=== PATIENT | female | born 2005 | race Caucasian/White ===

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

== ENCOUNTER 2025-10-14 06:41 | Emergency (ER) | payer SELFPAY ==
[2025-10-14] VITALS (8 sets, daily range): BP systolic 102–122; BP diastolic 71–84; PULSE 57–84; RESP 14–22; TEMP 36.6–36.8; O2SAT 99; BMI 33.5
--- NOTE | 2025-10-14 07:01 | EKG12_ITS ---
Test Reason : SOB Blood Pressure : */* mmHG Vent. Rate : 50 BPM Atrial Rate : 50 BPM P-R Int : 160 ms QRS Dur : 82 ms QT Int : 430 ms P-R-T Axes : 6 85 77 degrees QTcB Int : 392 ms Sinus bradycardia with Premature atrial complexes Otherwise normal ECG Confirmed by Aryan Padilla ([id number]), brands editor LAVERNE VALENCIA ([id number]) on 10/16/2025 8:06:43 AM Referred By: Confirmed By: Aryan Padilla
[2025-10-14] MEDS: 0.9% Normal Saline (1000mL) 1,000 ML 1000 ML IV (07:10)
[2025-10-14] MEDS: Albuterol 2.5 MG/3 ML VIAL.NEB. INHALATION (07:10)
--- NOTE | 2025-10-14 07:11 | EX.ED.VIS.UR ---
HPI HPI - URI History of Present Illness Chief Complaint: Shortness of Breath Informant: patient Narrative Narrative: Patient is a 20-year-old female with no significant reported past medical history presenting with shortness of breath and chest discomfort. Patient started coming down with viral symptoms 2 days ago. Notes she has had bilateral ear pain, cough, congestion and she has had this pressure/tightness in the center of her chest. States she had a fever last night between 99-100 ?F. This morning she woke up feeling very short of breath. She felt like she was wheezing. She denies any history of wheezing or asthma. She reports associated body aches. Notes she works at [employer] has been around a lot of people's is not sure if she has been exposed anyone has been sick. Does have a cough that is been productive of yellow sputum. Came in for further evaluation. Denies any cardiac history. Is noted in triage to have a drop in her heart rate and bradycardia. She does not currently feel lightheaded and that she has had some mild intermittent lightheadedness. Has never been told her heart rate is low. Denies any GI or symptoms. No reported swelling of her legs. Took [id number] cold flu medicine before coming in. ROS ROS ED Constitutional Constitutional ED: Reports chills and fever(s) ENT ENT ED: Reports other Details: Nasal congestion, bilateral ear pain ; Denies sore throat Cardiovascular Cardiovascular: Reports chest pain Respiratory/Chest Respiratory/Chest: Reports cough, dyspnea and sputum Gastrointestinal Gastrointestinal: Denies abdominal pain, diarrhea or vomiting Genitourinary Genitourinary ED: Denies dysuria Musculoskeletal Musculoskeletal: Reports myalgias; Denies arthralgias Integumentary Denies rash Neurologic Neurologic: Denies headache(s) Psychiatric Psychiatric: Denies anxiety PFSH PFSH Medical History no medical history Home Medications ?Medication ?Instructions ?Recorded ?Last Taken ?Type albuterol sulfate 90 mcg/actuation 1 - 2 puff inhalation Q4H PRN PRN 10/14/25 Unknown Rx aerosol inhaler (Ventolin HFA) Wheezing #1 inh Allergy/AdvReac Type Severity Reaction Status Date / Time No Known Allergies Allergy Verified 10/14/25 06:46 Social History Smoking Status: Never smoker EXAM Physical Exam Const Vital Signs: 10/14/25 06:42 10/14/25 06:44 10/14/25 06:46 Temperature 98.2 F 98.2 F Temperature Source Oral Oral Pulse Rate 84 84 Respiratory Rate 22 H 22 H Respiratory Effort Normal Short of Breath Respiratory Depth Deep Respiratory Pattern Tachypnea Blood Pressure 122/71 H 122/71 H Blood Pressure Mean 88 88 Pulse Ox 99 99 Oxygen Delivery Method Room Air Room Air Room Air 10/14/25 06:48 10/14/25 07:14 10/14/25 07:14 Temperature Temperature Source Pulse Rate 57 L 66 Respiratory Rate 14 Respiratory Effort Respiratory Depth Respiratory Pattern Normal Blood Pressure Blood Pressure Mean Pulse Ox 99 Oxygen Delivery Method Room Air 10/14/25 07:41 10/14/25 08:00 10/14/25 08:29 Temperature 97.9 F Temperature Source Pulse Rate 59 L 59 L 82 Respiratory Rate 18 18 16 Respiratory Effort Respiratory Depth Respiratory Pattern Blood Pressure 102/84 H 104/82 H 120/78 Blood Pressure Mean 90 89 92 Pulse Ox 99 99 99 Oxygen Delivery Method Positive well nourished and well developed General Appearance ED: well developed and NAD; Negative for pallor HEENT HEENT Narrative: Mildly dry mucosal membranes. Normal external ears. Normal panic membranes bilaterally. Normal ear canals. Throat: posterior oropharynx normal Eyes EOMs intact bilaterally Neck no lymphadenopathy and supple Resp normal respiratory effort and clear to auscultation bilaterally Cardio no murmurs Rate: bradycardia Rhythm: regular rhythm GI non-tender and non-distended Extremity normal to inspection Neuro oriented x3 Sensorium / Orientation: alert Motor Exam: Negative for general weakness Skin General Skin Exam: Negative for jaundice or pallor Rashes: no rashes MDM MDM MDM Narrative Medical decision making narrative: Patient evaluated for 2 to 3 days of flulike illness. Start feeling short of breath today. Vital signs significant for mild bradycardia which seems to be asymptomatic with normal blood pressure. Differential includes influenza, pneumonia, viral syndrome, cardiogenic cause. She is not reporting pleuritic chest pain and is PE RC negative so low suspicion for pulmonary emboli as a cause of her symptoms. No wheezing however will give albuterol treatments even helps with her chest tightness and feeling of shortness of breath. Workup shows a mild dehydration with a bicarb of 19.6 otherwise largely normal. She is positive for influenza A. No signs of secondary pneumonia on her chest x-ray. Chest x-ray read by myself as well as radiology. Patient feeling improved. Bradycardia improved after IV fluids. Not sure what to make of lab at this time think she can be discharged home. Counseled supportive treatment. She has had symptoms for more than 48 hours so not a candidate for Tamiflu. Did not urinate provide test however is comfortable leaving without that. Will be given a prescription for albuterol inhaler she does feel improved after albuterol treatment in the ER. Counseled on keeping hydrated with fluids, alternate ibuprofen and Tylenol for fever and pain control. Counseled return precautions and typical course of influenza. Lab Data Attestation: I reviewed the patient's lab results. Labs: Laboratory Results - last 24 hr 10/14/25 06:54 WBC 5.9 RBC 4.16 L Hgb 12.4 Hct 36.8 L MCV 88.5 MCH 29.8 MCHC 33.7 RDW Std Deviation 41.1 RDW Coeff of Kori 12.7 Plt Count 258 MPV 10.7 Immature Gran % (Auto) 0.300 Neut % (Auto) 66.9 Lymph % (Auto) 18.1 L Craven % (Auto) 14.0 H Eos % (Auto) 0.2 Baso % (Auto) 0.5 Absolute Neuts (auto) 4.0 Absolute Lymphs (auto) 1.07 Nucleated RBC % 0 Sodium 137 Potassium 3.8 Chloride 104 Carbon Dioxide 19.6 L Anion Gap 13 BUN 11 Creatinine 0.79 Estim Creat Clear Calc 110.82 Est GFR (MDRD) Non-Af 110 BUN/Creatinine Ratio 14.5 Glucose 99 Calcium 8.7 Troponin T High Sens < 6 Radiography Diagnostic Testing: Clinical Impression(s) from Imaging Studies Chest X-Ray 10/14/25 07:22 IMPRESSION: No evidence of acute cardiopulmonary abnormality. Reading Location: [facility] Rhythm Strip Rhythm Strip: sinus bradycardia Rate: 50 Ectopy: PAC(s) EKG Initial EKG: Attestation: I personally reviewed and interpreted this EKG as follows: Interpretation: Sinus Bradycardia Comments: Sinus bradycardia with PACs at a rate of 50 bpm Normal axis Normal intervals Normal ST segments Prior EKG tracings: available for review Prior: Changed (Now bradycardic with PACs) Discharge Plan Triage Chief Complaint: Shortness of Breath ED Provider: Rianna Hu Dx/Rx/DC Orders Clinical Impression: Influenza A, Cough Instructions: ED Influenza (Adult) Prescriptions: New albuterol sulfate [Ventolin HFA] 90 mcg/actuation HFA aerosol inhaler 1 - 2 puff inhalation Q4H PRN PRN (Reason: Wheezing) Qty: 1 0RF Primary Care Provider: Cristy Kay Referrals: Cristy Kay MD [Primary Care Provider, Pediatrics] Activity Restrictions/Additional Instructions: You tested positive for influenza A which is consistent with your symptoms. Treatment is supportive at this time. Push fluids especially fluids with electrolytes and them alternate with water. Alternate [id number] ibuprofen and Tylenol as needed for pain control. You been given an inhaler to use for wheezing, chest tightness and shortness of breath. You did have some intermittent low heart rate in the ER. It could be normal associate with your age but if you start to feel lightheaded or pass out please either return to the ER follow-up with your family doctor for this. Print Language: Georgian Disposition Disposition: Home, Self Care Discharge Date/Time: 10/14/25 08:39
[2025-10-14 07:16] LABS: Hematocrit 36.8 % (37-47); Hemoglobin 12.4 g/dL (12.0-15.0); Immature Granulocytes Count 0.020 X10^3/uL (0.0-0.0); Mean Corp Hgb Conc 33.7 g/dL (32-36); Mean Corpuscular Volume 88.5 fL (81-99); Mean Platelet Vol. 10.7 fl (6.2-12.0); NRBC Flagged by Analyzer 0 % (0-5); Platelet Count 258 K/mm3 (150-450); RBC Distribution Width CV 12.7 % (11.6-14.6); RBC Distribution Width SD 41.1 fl (35.1-43.9); Red Blood Count 4.16 M/mm3 (4.2-5.4); White Blood Count 5.9 K/mm3 (4.4-11.0)
--- NOTE | 2025-10-14 07:22 | RAD_ITS ---
PROCEDURE: CHEST PA AND LATERAL 10/14/2025 REASON FOR EXAM: COUGH, CHEST PAIN TECHNIQUE: Procedure Code: RADCXR Modality: DX Procedure: CHEST PA AND LATERAL COMPARISON: June 02, 2020 FINDINGS: The lungs are adequately aerated bilaterally without pleural effusion, pneumothorax, or focal airspace disease. Cardiomediastinal silhouette is age-appropriate. Osseous structures are normal. RAD/Chest PA and Lateral IMPRESSION: No evidence of acute cardiopulmonary abnormality. Reading Location: [facility]
--- OUTSIDE RECORDS SUMMARY | 2025-10-14 07:28 | XMS RPT_ITS | CCD ---
Author Organization [facility] Care Team Providers Care Clothes Shaker Name Role Phone Paul Meneses Primary Care Provider PAUL MENESES Primary Care Unavailable GIUSEPPE MENDEZ Referring Unavailable GIUSEPPE MENDEZ Attending Unavailable PAUL MENESES Primary Care Unavailable GIUSEPPE MENDEZ Attending Unavailable Bailee Armendariz Attending Unavailable Cristy Kay Referring Unavailable Cristy Kay Primary Care Unavailable Savanna Tavarez Attending Unavailable Cristy Kay Referring Unavailable Cristy Kay Primary Care Unavailable Diony Higgins Attending Unavailable Cristy Kay Referring Unavailable Cristy Kay Primary Care Unavailable Medications Current Medications Medication Drug Class(es) Dates Sig (Normalized) Sig (Original) amoxicillin 875 mg / clavulanate 125 mg oral tablet (4 sources) Penicillin-class Antibacterial Start: 09-19-2023 End: 09-26-2023 take 1 tablet by mouth every twelve hours amoxicillin-clav ulanate potassium (AUGMENTIN) 875-125 mg per tablet Take 1 tablet by mouth every 12 hours for 7 days. 14 tablet 0 09/19/2023 09/26/2023 Active Start: 09-06-2023 End: 09-13-2023 amoxicillin-clavulanate pota ssium (AUGMENTIN) 875-125 mg per tablet Take 1 tablet by mouth two times a day for 7 days. FOR 7 DAYS. 14 tablet 0 09/06/2023 09/13/2023 Active Comment on above: Take 1 tablet by brittney th two times a day for 7 days. FOR 7 DAYS. Take 1 tablet by brittney th every 12 hours for 7 days. Problems Active Problems Problem Classification Problem Date Documented Da te Episodic/Chronic Headache; including migraine (1 source) Headache; including migraine; Translations: [Headache, unspecified] Onset: 02-04-2024 Open wounds of extremities (1 source) Open wound of toe; Translations: [Unspecified open wound of unspecified toe(s) without damage to nail, initial encounter] 09-24-2023 Episodic Other bone disease and musculoskeletal deformities (2 sources) Exostosis; Translations: [Other specified disorders of bone, unspecified site] 12-18-2023 Episodic Other skin disorders (1 source) Infection of toenail; Translations: [Ingrowing nail] 09-06-2023 Episodic Other skin disorders (2 sources) Dystrophia unguium; Translations: [Nail dystrophy] 12-18-2023 Episodic Unclassified (1 source) Cough, unspecified; Translations: [Cough, unspecified] Onset: 11-17-2023 Past or Other Problems Problem Classification Problem Date Documented Da te Episodic/Chronic Gastritis and duodenitis (1 source) Gastritis, unspecified, without bleeding; Translations: [Gastritis, unspecified, without bleeding] Onset: 11-17-2023 Episodic Other upper respiratory infections (2 sources) Acute pharyngitis, unspecified; Translations: [Streptococcal pharyngitis] Onset: 08-24-2023 Episodic Results Test Name Value Interpretation Reference Range Facility Urgent Care Visit Reporton 0 02-04-2024 Urgent Care Visit Report [facility] [address], [address] [place] [address] OFFICE VISIT Date of Service: 02/04/24 MR#: [id number] Acct: [id number] Name: REGLA COATS Rep #: [id number] : 2005 Provider: SHAE Tolliver Age/Sex: 19/F [place] [facility] Status: Signed Intake Vital Signs 08/18/23 12:14 02/04/24 11:43 Height 5 ft 2 in 5 ft 2 in Weight: 195 lb 195 lb BMI 35.6 35.6 BP 114/68 Blood Pressure Location Rt brachial Position Sitting Respiration 16 16 Pulse 69 64 Pulse Source Monitor Monitor Temp 98.4 F 98.0 F Temp Source Temporal Temporal Pulse Oximetry (%) 98 98 Oxygen Delivery Method room air room air Intake Visit Reasons: SORE THROAT Chief Complaint: SORE THROAT CHEST CONGESTION HEADACHE NASAL DRAINAGE Cook Helper Pastry Required: No Accompanied by: Self Is patient in pain?: No Allergies No Known Allergies Allergy (Verified 02/04/24 11:44) Medications NK 02/04/24 [History Confirmed 02/04/24] Nurse's Note: Pt states she has chest congestion sore throat headache nasal drainage since sunday. Pt requested covid/ flu and strep test today. BJ PFSH Social History Smoking Status: Never smoker HPI HPI Chief Complaint: SORE THROAT CHEST CONGESTION HEADACHE NASAL DRAINAGE Details: REGLA COATS, is a 19 F who presents to the office today for initial evaluation in the [facility] for approximately 3 day history of persistent cough, TRONCOSO, myalgias, fatigue, congestion/ runny nose. Patient notes no complaints of chest pain or shortness of breath or dyspnea on exertion. Several close contacts recently dx???d w/ similar URI complaints. Nonsmoker. No [id number] taken to assist. No other associated symptoms and no other alleviating/aggravatin g factors. ROS Const Constitutional: No other (As above) Exam Const General: cooperative, healthy appearing and no acute distress Orientation: alert, awake and oriented x3 HENMT Head: normal to inspection Ears: hearing grossly normal bilaterally, external ears normal, TM's normal bilaterally and EAC's normal Nose: external nose normal, nares normal, septum normal and clear nasal discharge Face and sinus: normal facial exam, sinuses nontender and face symmetric Mouth: oral mucosae normal, lip normal, tongue normal and oropharynx normal Throat: posterior oropharynx normal, tonsils normal, uvula midline and no postnasal drainage Eyes General: appearance normal, both eyes and all related structures Neck Neck: normal visual inspection, full ROM, no lymphadenopathy, no meningeal signs and supple Neck mass: No Thyroid: thyroid normal Lymphatic: no lymphadenopathy noted Chest Chest palpation inspection: normal inspection of the chest Resp Effort Inspection: normal respiratory effort, able to speak in complete sentences and cough Quality of cough: wet (nonproductive in office today) Auscultation: Bilateral: Clear to Auscultation Cardio Palpation: normal PMI Rate: tachycardic Rhythm: regular rhythm Heart Sounds: S1 normal, S2 normal, no gallops, no murmurs and no rubs Pulses: radial pulses present Skin General: no rashes or lesions noted Neuro General: patient alert, patient awake and patient oriented x3 Cognition: normal cognition Speech: speech normal Psych Appearance: grossly normal Mental Status: mental status grossly normal Mood: congruent mood Affect: normal affect Speech and Movement: speech and movement normal Attitude: cooperative Diagnoses Contact with or exposure to other viral diseases Z20.828 URI (upper respiratory infection) J06.9 Assessment and Plan Assessment and Plan (1) Contact with or exposure to other viral diseases: Status: Acute (2) URI (upper respiratory infection): Status: Acute Plan: See POC results. Supportive measures as instructed today. Follow-up with PCP in 5 to 7 days should symptoms not improve, ED sooner should symptoms worsen or any other concerns develop. Pt states acknowledging understanding all the above Results Office Rapid Strep A Office Rapid Strep A Negative Last Edit by Julieth Jensen MA on 02/04/24 11:49 POC FLU A B Office Flu A B Negative FLU A B Last Edit by Julieth Jensen MA on 02/04/24 11:49 POC SARS AG POC SARS AG Negative Last Edit by Julieth Jensen MA on 02/04/24 11:50 Coding Level of Care Code Off vis,est,level 2 Assessment and Plan Assessment and Plan Orders: Orders POC Rapid Strep A Today J02.9 - Acute pharyngitis, unspecified POC FLU A B Today R51.9 - Headache, unspecified POC Rapid SARS Antigen Today 02/04/24 1216 Date Diony Cornell Signature: Date ____ (more content not included)... Normal [facility] No Panel Informationon 12-18 [facility] Internal Medicine Office Vis iton 11-17-2023 Internal Medicine Office Visit [facility] [address] [place] [address] [place] [address] OFFICE VISIT Date of Service: 11/17/23 MR#: [id number] Acct: [id number] Name: REGLA COATS Rep #: [id number] : 2005 Provider: HERSON gibbons Age/Sex: 18/F [place] [facility] [place] Status: Signed Intake Vital Signs 08/18/23 12:14 11/17/23 10:40 Height 5 ft 2 in Weight: 195 lb BMI 35.6 BP 114/68 118/68 Blood Pressure Location Rt brachial Lt brachial Position Sitting Sitting Respiration 16 15 Pulse 69 68 Pulse Source Monitor NIBP Temp 98.4 F 98.3 F Temp Source Temporal Temporal Pulse Oximetry (%) 98 99 Oxygen Delivery Method room air room air Intake Visit Reasons: SORE THROAT, HEADACHE Chief Complaint: vomiting, dry cough, ST/TRONCOSO Cook Helper Pastry Required: No Is patient in pain?: No Allergies No Known Allergies Allergy (Verified 11/17/23 10:41) Medications ondansetron HCl 4 mg tablet 4 mg PO Q8H PRN nausea and vomiting #30 tabs 11/17/23 [Rx Confirmed 11/17/23] Is last menstrual period known: No Post menopausal: No Patient : No Nurse's Note: vomiting, dry cough, ST/TRONCOSO x 5 days PFSH Social History Smoking Status: Never smoker [facility] HPI Chief Complaint: vomiting, dry cough, ST/TRONCOSO Details: REGLA COATS, is a 18 F who presents to the clinic today with sore throat x 5 days reports it is constant, with pain with swallowing. She reports dry cough with occasional productive clear mucus, nasal congestion, headaches, left ear fullness that developed yesterday. She also reports yesterday she developed nausea and vomiting, with 1 episode of emesis this morning, 2 episodes of emesis yesterday. She denies diarrhea, constipation. She has mild abdominal cramping. She states due to a headache she took Excedrin earlier yesterday and Tylenol PM last night. She denies chest pain, chest discomfort, shortness of breath, dizziness or lightheadedness. She denies . ROS Const Constitutional: Positive for other (As noted in HPI) Exam Const General: cooperative and ill appearing Nutritional Appearance: average body habitus Orientation: alert, awake and oriented x3 HENMT Head: normal to inspection and no palpable skull fracture Ears: hearing grossly normal bilaterally, TM normal on the right and TM normal on the left Nose: external nose normal Face and sinus: normal facial exam, sinuses nontender and no sinus tenderness Mouth: oral mucosae normal Teeth and gingiva: dentition normal Throat: tonsils abnormal, abnormal tonsil bilaterally erythema and hypertrophy 2+, posterior oropharynx abnormal and postnasal drainage Other: cobblestoning to posterior pharynx Eyes General: appearance normal, both eyes and all related structures Visual Yang: normal visual yang by confrontation Alignment and Position: alignment normal Periorbital: periorbital findings normal Eyelids: eyelids normal Conjunctivae: conjunctivae normal Sclera: sclerae normal Cornea: corneas normal Pupils: PERRL EOM: EOM intact bilaterally Neck Neck: normal visual inspection, full ROM and lymphadenopathy bilateral anterior cervical soft, mobile and tender Chest Chest palpation inspection: normal inspection of the chest Resp Effort Inspection: normal respiratory effort, able to speak in complete sentences and symmetric chest movement Auscultation: Bilateral: Clear to Auscultation Cardio Rate: regular rate Rhythm: regular rhythm Heart Sounds: S1 normal and S2 normal GI Inspection: normal to inspection Auscultation: normal bowel sounds Palpation: soft Other: mild tenderness on palpation to upper abdomen, epigastrium, and bilateral lower ribs General: No CVA tenderness Skin General: no rashes or lesions noted Neuro General: patient alert, patient awake and patient oriented x3 Cranial Nerves: CN's II-XI intact bilaterally Cognition: normal cognition Speech: speech normal Gait: normal gait Motor: muscle tone normal throughout Psych Appearance: grossly normal Mental Status: mental status grossly normal Mood: congruent mood Affect: normal affect Speech and Movement: speech and movement normal Attitude: cooperative Thought Process: normal Thought Content: normal Judgment: judgment good Results POC SARS AG POC SARS AG Negative Last Edit by Rupa Samson on 11/17/23 10:44 POC FLU A B Office Flu A B Negative FLU A B Last Edit by Rupa Samson on 11/17/23 10:44 Office Rapid Strep A Office Rapid Strep A Negative Last Edit by Rupa Samson on 11/17/23 11:08 Coding Level of Care Code New Pt Off vis,new,level 3 Patient Type New Diagnoses Viral gastritis K29.70 Assessment and Plan Assessment and Plan (1) Viral gastritis: Status: Acute Orders: Orders POC FLU A B Today R05.9 - Cough, u (more content not included)... Normal [facility] CNOVon 09-24-2023 CNOV Office Visit (PODIWS ) REGLA COATS ([id number]) 5 F Date Time Provider Department 09/24/23 11:45 AM GIUSEPPE MENDEZ PODIWS During your visit today, we recorded the following information about you: Thais Bearden LPN 09/24/2023 11:53 AM Signed AMB ROOMING INTAKE FLOWSHEET DATA Pain Pain Level: 4 Pain Location: Toe Description: Sore Duration Amount of Time: 2 Duration Units: Weeks Frequency: Intermittent Intervention/Comfort measure: Reposition, Relaxation, Medication Patient presents with: Left Foot - Established Patient, Follow Up, Pain, Ingrown Toenail Right Foot - Established Patient, Follow Up, Ingrown Toenail BELLO Mullins Matthew 09/24/2023 11:53 AM Signed FOLLOW UP PODIATRIC OFFICE VISIT Chief Complaint: This 18 year old who presents for follow up:total nail removal of b/l hallux Patient presents to clinic for follow-up b/l great toenail removal Patient states that her toe was slightly red last week prompting her to call in for refill on the antibiotic The toes are improving Patient feels well PAIN EVALUATION 09/24/2023 1141 Pain Level: 4 Pain Location: Toe Description: Sore Duration Amount of Time: 2 Duration Units: Weeks Frequency: Intermittent Intervention/Comfort measure: Reposition;Relaxation; Medication No results found for: HBA1C PCP: Paul Meneses MD No past medical history on file. Current Outpatient Medications Medication Sig amoxicillin-clavulanat e potassium (AUGMENTIN) 875-125 mg per tablet Take 1 tablet by mouth every 12 hours for 7 days. No current facility-administered medications for this visit. ALLERGIES No Known Allergies No past surgical history on file. Physical Exam: OBJECTIVE: Constitutional: Pt is a well developed 18 year old female who is alert, oriented, cooperative and in no apparent distress. Eyes: Following during examination. No redness or drainage. Respiratory: RR normal and nonlabored. Even breathing. No evidence of distress. Psychology: Patient is engaged during conversation. Normal affect and mood. Does not appear depressed or anxious. NVSI unchanged from previous visit. Dermatological: B/l hallux nail bed appears to be healing without local signs of infection Musculoskeletal/Orthop aedic: Patient has no pain to palpation of b/l hallux ASSESSMENT: (S91.109A) Open wound of toe, initial encounter (primary encounter diagnosis) PLAN: B/l hallux nail plate appears to be healing without signs of infection Continue with local wound care until all healing has achieved Would make plans for chemical matrixectomy in future once nail has returned Discussed her concern of past infection. I seen no infection at this time. Wonder if the redness she was experiencing was from bandaide. Nevertheless, she is on augmentin which will cover both bacteria present in toe. Can complete the antibiotic refill. F/u prn HERMAN Hightower Matthew 09/24/2023 11:50 AM Signed Your wound appears to be healing Can continue with local wound care until the toe is completely healed Could make arrangements for permanent procedure in future Referring Provider: GIUSEPPE MENDEZ [[id number]] Allergies As of Date: 09/24/2023 (No Known Allergies) Date Reviewed: 09/24/2023 Reviewed by: Thais Bearden LPN - Fully Assessed Reason for Visit: Established Patient [175] Follow Up [171] Pain [78] Ingrown Toenail [111] Established Patient [175] Follow Up [171] Ingrown Toenail [111] Primary Visit Diagnosis:Open wound of toe, initial encounter [S91.109A] Prescriptions as of 09/24/2023 - amoxicillin-clavulanat e potassium (AUGMENTIN) 875-125 mg per tablet Take 1 tablet by mouth every 12 hours for 7 days. Problem List As Of Date: 09/24/2023 (None) Other instructions from your clinician: Your wound appears to be healing Can continue with local wound care until the toe is completely healed Could make arrangements for permanent procedure in future Encounter Status:Closed by GIUSEPPE MENDEZ DPM on 09/24/23 [facility] REGLA COATS ([id number]) 5 F Date Time Provider Department 09/19/23 GIUSEPPE MENDEZ During your visit today, we recorded the following information about you: HOLLI Lincoln Laurie 09/19/2023 10:31 AM Signed 09/06 Total nail avulsion, bilateral hallux Pt completed Augmentin 09/13. Right great toe is still draining yellow/green drainage and still has some red streaking. She states that symptoms have worsened since being off of the antibiotic. Streaking is slightly worse than when she had the procedure. Not extending from toe. Please review and advise. HOLLI Escudero Amelia, LPN 09/19/2023 11:10 AM Signed Giuseppe Mendez MA, Laurie; [facility] 8 minutes ago (10:59 AM) Rx called in. If issues fail to improve, present to urgent care HERMAN Hightower Amelia, LPN 09/19/2023 11:10 AM Signed Patient notified. Thais Bearden LPN Allergies As of Date: 09/19/2023 (No Known Allergies) Date Reviewed: 09/06/2023 Reviewed by: Thais Bearden LPN - Fully Assessed Reason for Visit: Patient Update [1234] Prescriptions as of 09/19/2023 - amoxicillin-clavulanat e potassium (AUGMENTIN) 875-125 mg per tablet Take 1 tablet by mouth every 12 hours for 7 days. Problem List As Of Date: 09/19/2023 (None) Encounter Status:Closed by THAIS BEARDEN on 09/19/23 [facility] [place] 09-10-2023 [facility] Telephone (PODIWS) REGLA COATS ([id number]) 5 F Date Time Provider Department 09/10/23 GIUSEPPE MENDEZ During your visit today, we recorded the following information about you: Giuseppe Mendez 09/10/2023 4:31 PM Signed Please call patient: Wound culture did show staph and strep. You are on appropriate antibiotic. I want you to continue until you finish HERMAN Hightower Amanda, RN 09/10/2023 4:34 PM Signed Called and spoke to patient this morning regarding results. See telephone encounter from 09/09/2023 Allergies As of Date: 09/10/2023 (No Known Allergies) Date Reviewed: 09/06/2023 Reviewed by: Thais Bearden LPN - Fully Assessed Reason for Visit: Results [95] Prescriptions as of 09/10/2023 - amoxicillin-clavulanat e potassium (AUGMENTIN) 875-125 mg per tablet Take 1 tablet by mouth two times a day for 7 days. FOR 7 DAYS. Problem List As Of Date: 09/10/2023 (None) Encounter Status:Closed by EMILEE ORDONEZ on 09/10/[address] [facility] 09-09-2023 [facility] Telephone (PODIWS) REGLA COATS ([id number]) 5 F Date Time Provider Department 09/09/23 GIUSEPPE MENDEZ During your visit today, we recorded the following information about you: Giuseppe Mendez 09/09/2023 12:54 AM Signed Preliminiary cultures shows that augmentin will help on her infection. I want her to continue until complete If she has any issues, please direct her to urgent care as I am out of the office HERMAN Hightower Amelia, LPN 09/10/2023 10:03 AM Signed Spoke to patient mother. Updated patient phone number patient is to call back office to receive results. BELLO Mullins Amanda, RN 09/10/2023 10:11 AM Signed Patient called in requesting culture results. Informed her of below message. She states that she still has some redness and swelling, but that it has improved since she had bilateral bit toenail avulsion on 09/06. States that she still has a few days left of her antibiotics and will continue to take them and soak toes. No further questions at this time. Allergies As of Date: 09/09/2023 (No Known Allergies) Date Reviewed: 09/06/2023 Reviewed by: Thais Bearden LPN - Fully Assessed Reason for Visit: Results [95] Prescriptions as of 09/10/2023 - amoxicillin-clavulanat e potassium (AUGMENTIN) 875-125 mg per tablet Take 1 tablet by mouth two times a day for 7 days. FOR 7 DAYS. Problem List As Of Date: 09/09/2023 (None) Encounter Status:Closed by EMILEE ORDONEZ on 09/10/23 [facility] Bacteria Wnd Culton 09-06-20 Bacteria identified Cx Nom (Wound) ORGANISM ID: 1 Many Staphylococcus aureus ORGANISM ID: 2 Moderate Streptococcus pyogenes (group a streptococcus) ORGANISM ID: 3 Few skin chetna GRAM STAIN: Few Gram positive cocci No Polymorphonuclear Leukocytes ORGANISM ID: 1 (STAPHYLOCOCCUS AUREUS) -- ANTIBIOTIC INTERPRETATION ALICIA STATUS REFERENCE RANGE -- Oxacillin S 0.5 F Susceptible <=2 , Resistant >2 Oxacillin-susceptible staphylococci are susceptible to other penicilllinase-stable penicillins, beta-lactam/beta-lacta pushpa inhibitor combinations, anti-staphylococcal cephems, and carbapenems. Gentamicin S <=0.5 F Susceptible <=4 , Intermediate >4 , Resistant >8 Erythromycin R >=8 F Susceptible <=0.5 , Intermediate >.5 , Resistant >4 Clindamycin S 0.25 F Susceptible <=0.5 , Intermediate >.5 , Resistant >2 Testing for inducible clindamycin resistance was performed. Trimeth sulfameth S <=10 F Susceptible <=40 , Resistant >40 Vancomycin S 1 F Susceptible <=2 , Intermediate >2 , Resistant >8 Rifampin S <=0.5 F Susceptible <=1 , Intermediate >1 , Resistant >2 Rifampin should not be used alone for antimicrobial therapy. Tetracycline S <=1 F Susceptible <=4 , Intermediate >4 , Resistant >8 Doxycycline S <=0.5 F Susceptible <=4 , Intermediate >4 , Resistant >8 ORGANISM ID: 2 (STREPTOCOCCUS PYOGENES (GROUP A STREPTOCOCCUS)) -- ANTIBIOTIC INTERPRETATION ALICIA STATUS REFERENCE RANGE -- Penicillin G S <=0.03 F Susceptible <=0.125 , Nonsusceptible >.125 Ceftriaxone S <=0.12 F Susceptible <=0.5 , Nonsusceptible >.5 Erythromycin S <=0.25 F Susceptible <=0.25 , Intermediate >.25 , Resistant >=1 Clindamycin S <=0.12 F Susceptible <=0.25 , Intermediate >.25 , Resistant >.5 Vancomycin S <=0.50 F Susceptible <=1 , Nonsusceptible >1 Abnormal [facility] Comment on above: Performed By: #### [id number] #### [facility] CLIA [id number] [address] [place] [address] [place] Bacteria identified Cx Nom (Wound) ORGANISM ID: 1 Many Staphylococcus aureus ORGANISM ID: 2 Many Streptococcus pyogenes (group a streptococcus) ORGANISM ID: 3 Rare skin chetna GRAM STAIN: Few Gram positive cocci No Polymorphonuclear Leukocytes ORGANISM ID: 1 (STAPHYLOCOCCUS AUREUS) -- ANTIBIOTIC INTERPRETATION ALICIA STATUS REFERENCE RANGE -- Oxacillin S 0.5 F Susceptible <=2 , Resistant >2 Oxacillin-susceptible staphylococci are susceptible to other penicilllinase-stable penicillins, beta-lactam/beta-lacta pushpa inhibitor combinations, anti-staphylococcal cephems, and carbapenems. Gentamicin S <=0.5 F Susceptible <=4 , Intermediate >4 , Resistant >8 Erythromycin R >=8 F Susceptible <=0.5 , Intermediate >.5 , Resistant >4 Clindamycin S 0.25 F Susceptible <=0.5 , Intermediate >.5 , Resistant >2 Testing for inducible clindamycin resistance was performed. Trimeth sulfameth S <=10 F Susceptible <=40 , Resistant >40 Vancomycin S 1 F Susceptible <=2 , Intermediate >2 , Resistant >8 Rifampin S <=0.5 F Susceptible <=1 , Intermediate >1 , Resistant >2 Rifampin should not be used alone for antimicrobial therapy. Tetracycline S <=1 F Susceptible <=4 , Intermediate >4 , Resistant >8 Doxycycline S <=0.5 F Susceptible <=4 , Intermediate >4 , Resistant >8 ORGANISM ID: 2 (STREPTOCOCCUS PYOGENES (GROUP A STREPTOCOCCUS)) -- ANTIBIOTIC INTERPRETATION ALICIA STATUS REFERENCE RANGE -- Penicillin G S <=0.03 F Susceptible <=0.125 , Nonsusceptible >.125 Ceftriaxone S <=0.12 F Susceptible <=0.5 , Nonsusceptible >.5 Erythromycin S <=0.25 F Susceptible <=0.25 , Intermediate >.25 , Resistant >=1 Clindamycin S <=0.12 F Susceptible <=0.25 , Intermediate >.25 , Resistant >.5 Vancomycin S <=0.50 F Susceptible <=1 , Nonsusceptible >1 Abnormal [facility] Comment on above: Performed By: #### 6 [id number] #### [facility] CLIA [id number] [address] [id number] [place] [facility] CNOVon 09-06-2023 CNOV Office Visit (PODIWS ) REGLA COATS ([id number]) 5 F Date Time Provider Department 09/06/23 10:30 AM GIUSEPPE MENDEZ PODIWS During your visit today, we recorded the following information about you: Thais Bearden LPN 09/06/2023 12:33 PM Signed AMB ROOMING INTAKE FLOWSHEET DATA Risk Screening Do you have concerns about personal safety or safety in the home?: No Pain Pain Level: 10 Pain Location: Toe Description: Throbbing, Sharp, Shooting Duration Amount of Time: 9 Duration Units: Days Frequency: Intermittent Intervention/Comfort measure: Reposition, Relaxation, Medication Patient presents with: Left Great Toe - New, Ingrown Toenail, Pain, Swelling Right Great Toe - New, Ingrown Toenail, Pain, Swelling Patient present to office with bilateral hallux ingrown toenails. Patient states this has been infected for about 9 days. Patient was on antibotics for strep throat and completed medication last Sunday. BELLO Mullins Matthew 09/06/2023 12:33 PM Signed Initial Podiatric Office Visit: Chief Complaint: This 18 year old female who presents with chief complaint:ingrowing toenail of b/l hallux HPI Patient presents to clinic for evaluation of b/l hallux Has ingrowing toenail x 1 week. Has history of ingrowing toenail and can usually cut them out herself She states the nails are red, swollen and draining She did have strep and was on antibiotic. That did help to some degree but she still has drainage. PAIN EVALUATION 09/06/2023 1037 Pain Level: 10 Pain Location: Toe Description: Throbbing;Sharp;Shooti ng Duration Amount of Time: 9 Duration Units: Days Frequency: Intermittent Intervention/Comfort measure: Reposition;Relaxation; Medication No results found for: HBA1C PCP: Paul Meneses MD No past medical history on file. No current outpatient medications on file. No current facility-administered medications for this visit. ALLERGIES No Known Allergies No past surgical history on file. No family history on file. Social History Tobacco Use Smoking status: Passive Smoke Exposure - Never Smoker REVIEW OF SYSTEMS GENERAL: Negative for Malaise, significant weight loss, fever RESPIRATORY: Negative for cough, wheezing and shortness of breath CARDIOVASCULAR: Negative for chest pain, leg swelling and palpitations GI: Negative for abdominal discomfort, blood in stools or black stools and change in bowel habits : Negative for dysuria, frequency and incontinence MUSCULOSKELETAL: Negative for joint pain or swelling, back pain, and muscle pain. SKIN: Negative for lesions, rash, and itching. HEMATOLOGY/LYMPHOLOGY Negative for prolonged bleeding, bruising easily, and swollen nodes. ENDOCRINE: Negative for cold or heat intolerance, polyuria, polydipsia and goiter. NEURO: negative Physical Exam: Constitutional: Pt is a well developed 18 year old female who is alert, oriented and cooperative Eyes: Following during examination. No redness or drainage. Respiratory: RR normal and nonlabored. Even breathing. No evidence of distress or shortness of breath. Psychology: Patient is engaged during conversation. Normal affect and mood. Does not appear depressed or anxious during encounter. Vascular: Dorsalis pedis and posterior tibial pulses palpable as b/l Capillary Fill time < 5 seconds to digits 1-5 b/l Skin temperature warm to warm proximal to distal b/l Hair growth present to digits Neurological: intact light touch/epicritic sensation b/l intact protective sensation no significant neurological deficits Dermatological: B/l hallux medial and lateral nail border is ingrowing with pain, redness, swelling, drainage. The entire proximal medial, proximal lateral and proximal central nail fold is swollen with drainage b/l. There is hypergranular tissue present to medial border of b/l hallux. Webspaces clean and dry 1-4 b/l. Skin appears well hydrated and supple. good color, texture, turgor. No open lesions present. No callosities present. Musculoskeletal/Orthop aedic: Patient has pain to palpation of b/l hallux toenail Radiographs: n/a ASSESSMENT: (L60.0) Ingrowing toenail with infection (primary encounter diagnosis) PLAN: Discussed ingrowing toenail of b/l hallux. Both medial and lateral border is ingrowing and there is drainage to both medial and lateral nail fold. There is some drainage from central nail fold proximally there is redness present to both great toes that is circumferential to the entire hallux. Discussed options not limited to partial nail avulsion vs total nail avulsion. Given the severe infection present, I would plan on placing her on antibiotic combined with total nail avulsion. Patient consents to proceed with total nail avulsion of b/l hallux. Would plan for possible matrixectomy in future provided no inf (more content not included)... Normal [facility] Office Visit Reporton 2022 Office Visit Report [facility] [address] [place] [address] OFFICE VISIT Date of Service: 08/18/23 MR#: [id number] Acct: [id number] Patient: REGLA COATS Rep #: [id number] 9 : 2005 Provider: SHAE Seay Age/Sex: 18/F [place] [facility] [place] Status: Signed Intake Vital Signs 06/02/20 15:43 08/18/23 12:14 Height 5 ft 2 in 5 ft 2 in Weight: 195 lb BMI 35.6 BP 114/68 Blood Pressure Location Rt brachial Position Sitting Respiration 16 Pulse 69 Pulse Source Monitor Temp 98.4 F Temp Source Temporal Pulse Oximetry (%) 98 Oxygen Delivery Method room air Intake Visit Reasons: SORE THROAT Cook Helper Pastry Required: No Is patient in pain?: Yes Allergies No Known Allergies Allergy (Verified 08/18/23 12:12) Medications amoxicillin 500 mg tablet 500 mg PO BID #20 tabs 08/18/23 [Rx Confirmed 08/18/23] Nurse's Note: Started sunday w/ tonsil pain on both sides and a sore throat now it is more localized to R side and will shoot up into her ear, states that it feels like there's a rock. States that it gets worse at night and has not been able to sleep. Has been using cough syrup which did not help. PFSH Social History Smoking Status: Never smoker HPI HPI Details: REGLA COATS, is a 18 F who presents to the office today for sore throat and pain radiating to right ear. Denies fever, chills, body aches. Denies TRONCOSO ROS Const Constitutional: No body ache, chills, excessive sweating, fatigue, frequent falls, headache(s), snoring, weakness, sleep problems or change in appetite Eyes Eyes: No blurry vision, change in vision, eye pain or Light sensitivity ENT ENT: Positive for ear or mastoid pain, difficulty swallowing and sore throat; No abnormal hearing, tinnitus, nasal congestion, headache(s) or neck pain Resp Respiratory: No cough, shortness of breath, snoring or wheezing Cardio Cardiology: No chest pain at rest, chest pain with exertion, excessive sweating, shortness of breath, dyspnea on exertion, lightheadedness, orthopnea or palpitations Gastro GI: Positive for difficulty swallowing; No abdominal pain, change in bowel habits, constipation, cramping, diarrhea, nausea/dyspepsia or vomiting Genitourinary-Female: No burning urination, painful urination, urinary incontinence, urinary frequency, abnormal vaginal bleeding or pelvic pain Musc Musculoskeletal: No abnormal gait, joint pain, back pain, limited range of motion, neck pain or numbness Skin Skin: No dry skin, redness, lesions, itchy eyes, rash or wounds Neuro Neurology: No abnormal gait, abnormal hearing, weakness, frequent falls, headache(s), memory loss or numbness Psych Psychiatric: No anxiety, No change in appetite, No depression, No memory loss and No Thoughts of harming yourself/Others Endo Endocrine: No cold intolerance, excessive sweating, fatigue, flushing, heat intolerance, increased thirst/drinking or increased hunger Aller/Imm Allergy/Immunologic: No itchy eyes, seasonal allergy symptoms, hives or wheezing Biju/Lymp Hematologic/Lymphatic: No easy bleeding, easy bruising, enlarged lymph nodes or other Exam Const General: cooperative, healthy appearing, comfortable and no acute distress Nutritional Appearance: average body habitus Orientation: alert and awake [facility] Head: normal to inspection Ears: hearing grossly normal bilaterally, external ears normal and TM's normal bilaterally Nose: external nose normal and nares normal Mouth: oral mucosae normal, lip normal and tongue normal Throat: posterior oropharynx normal (erythematous) Eyes Pupils: PERRL EOM: EOM intact bilaterally Neck Neck: normal visual inspection, full ROM, no lymphadenopathy, no meningeal signs, trachea midline and supple Resp Effort Inspection: normal respiratory effort and able to speak in complete sentences Auscultation: Bilateral: Clear to Auscultation Skin General: no rashes or lesions noted Results POC Rapid Strep A Office Rapid Strep A Positive Last Edit by Becky Jeter MA on 08/18/23 12:30 Coding Level of Care Code Off vis,new,level 3 Diagnoses Strep pharyngitis J02.0 Assessment and Plan Assessment and Plan (1) Strep pharyngitis: Status: Acute Orders: Orders POC Rapid Strep A Today J02.9 - Acute pharyngitis, unspecified Medications: New amoxicillin 500 mg PO BID 20 tabs 0RF J02.0 - Streptococcal pharyngitis Plan Will treat positive strep with amoxicillin Patient Instructions: Finish all antibiotic rest, drink lots of fluids follow up with lumber planer if no improvement in 2 days 05/10/24 0833 Date Bailee Cornell Signature: Date (if applicable) CC: Normal [facility] Progress Noteon 03-21-2022 Exhaust And Muffler Fitter Authentication Interface Message Text Patient ID: Regla Coats is a 17 y.o. female. Her chief complaint(s) include: 17 YEAR WELL CHILD Assessment 1. Encounter for routine child health examination without abnormal findings 2. Overweight 3. Abnormal weight gain 4. Exercise counseling 5. Encounter for dietary counseling and surveillance 6. Need for vaccination Plan Regla was seen today for 17 year well child. Diagnoses and all orders for this visit: Encounter for routine child health examination without abnormal findings - Hearing Screening - Vision Screening - PHQ9 Assessment With Score - Health Risk Assessment - CRAFFT Overweight - ALT [SGPT] (Lab Collect); Future - Glucose (Lab Collect); Future - Hemoglobin A1c (Lab Collect); Future - TSH with Reflex to T4, Free (Lab Collect); Future - Lipid Panel (Lab Collect); Future Abnormal weight gain - ALT [SGPT] (Lab Collect); Future - Glucose (Lab Collect); Future - Hemoglobin A1c (Lab Collect); Future - TSH with Reflex to T4, Free (Lab Collect); Future - Lipid Panel (Lab Collect); Future Exercise counseling Encounter for dietary counseling and surveillance Need for vaccination - COVID-19 MRNA VACCINE PFIZER 30MCG/0.3ML IM SUSP Discussed diet and exercise. Return in about 1 year (around 03/21/2023) for well check. Subjective She is accompanied by her sibling(s). Independent history obtained from sibling(s) (and patient). 17 YEAR WELL CHILD Complications after delivery: parental limits and consequences for unacceptable behavior Home: Regla has an adult to turn to for help and is permitted and able to make independent decisions. Regla does not eat meals with family, has no home risk identified and does not pay the bills. Education: Regla is in 11th grade and is doing well, is meeting expectations, is getting along with peers and earns A's & B's. Eating: Regla eats regular meals including fruits and vegetables, limits fast food, drinks non-sweetened liquids and has a calcium source. Regla does not eat breakfast. Activities & Sports: Regla has a job ([employer]) and performs at least 1 hour of physical activity daily. Regla engages in screen time more than 2 hours daily, does not play team sports, does not participate in music programs and does not have drivers license. Drugs: Regla does not use tobacco, does not use drugs, does not use alcohol and does not vape. Safety: Regla has a violence free home, has peer relationships free from violence and uses seat belt. Regla does not use helmet. Sex: The patient has never had a sexual partner. The patient has never had sex. The patient's gender identity is cisgender. Suicidality: Regla has ways to cope with stress and displays self-confidence. Regla has no problems with sleep, has no depression, has no anxiety, does not have mood swings, has no suicidal ideation and has no homicidal ideation. PHQ-9 Score: 0 Menstruation (Menarche: around 12 years of age, LMP: 03/10/22) Menstruation: regular periods, minimal cramping and bloating Output Urine and Stool Pattern: Urine and Stool Pattern: Normal stool pattern, no constipation, normal urine pattern, no nocturnal enuresis. Stool Consistency: soft Sleep Sleeping Difficulty: no difficulty sleeping Hours of sleep at a time: 10 Teen Anticipatory Guidance The following anticipatory guidance was reviewed during the visit: Nutrition: limit junk food/fast food and soft drinks. Safety: home safety and use safety helmet/gear with activities. Social: avoid or limit screen time and parental limits and consequences for unacceptable behavior. Health: age appropriate dental care, age appropriate sleep habits, elevated noise and hearing, avoid situations where drugs and alcohol are present, how to resist peer pressure to smoke, drink, use drugs, practice abstinence- the safest way to prevent and STDs, learn to manage time and activities, be responsible for attendance/ homework/ course selection and limit sun exposure/use sunscreen. Screenings Previous Vaccine Reactions: No. Life events information was reviewed-no referral needed (social determinant questionnaire completed: no concerns at this time) Tuberculosis Concerns: Negative Tuberculosis Screen Concerns: no exposure to Tb or person with positive ppd Hearing Vision Concerns: The caregiver has no concerns about the patient's hearing. The caregiver has no concerns about the patient's vision. Hyperlipidemia Concerns: Negative Hyperlipidemia Screen Concerns: no parent or grandparent with DE angina peripheral or cerebrovascular disease <55 years and no parent with cholesterol >240mg/dl Primary Care Review of Systems Objective Vital Signs 03/21/22 1300 BP: 104/64 Temp: 36.6 C (97.9 F) TempSrc: Temporal Weight: (!) 94.2 kg Height: 161.5 cm Body mass index is 36.12 kg/m . Physical Exam Constitutional: She appears well. She is active. No (more content not included)... Normal [facility] Progress Noteon 02-28-2022 Exhaust And Muffler Fitter Authentication Interface Message Text Patient ID: Regla Coats is a 17 y.o. female. Her chief complaint(s) include: Pharyngitis (Nasal congestion, cough, headache ) Assessment 1. Acute bacterial sinusitis 2. Need for vaccination Plan Regla was seen today for pharyngitis. Diagnoses and all orders for this visit: Acute bacterial sinusitis - cefdinir (OMNICEF) 300 MG capsule; Take 1 Capsule (300 mg) by mouth 2 times daily for 10 days Need for vaccination - Meningococcal ACWY (MENACTRA) - Meningococcal B (BEXSERO) - HPV (Gardasil 9) Return if symptoms worsen or fail to improve. Will start antibiotic for sinus infection. Recommended taking on full stomach and eating yogurt or taking probiotic for up to 1 month after atbx use. Advised to give medication 3 days to start to see improvement. Discussed supportive care with motrin/tylenol, nasal saline/washes, humidifier, and vicks to chest. Deferred covid booster today d/t acute illness and unable to r/o covid infection, to receive at [facility]. Subjective HPI Comments: Hx of tonsil stones- was on amoxicillin recently d/t thought it was strep, saw improvement when on amox, finished amox 2 Sundays ago. Started feeling sick again last Sunday- first sx sore throat. She is accompanied by her mother. Independent history obtained from mother. Pharyngitis The duration has been 1 week. The course is unchanging. Aggravated by drinking, talking and eating. Symptoms are relieved by acetaminophen. The patient's symptoms have included headaches (tylenol helps, currently with TRONCOSO, temporal, 6/10 pain, no vision changes, pounding), congestion, rhinorrhea, cough (x1 week, + mucus), abdominal pain (occasional) and diarrhea (started while on amox, persisting, 4-5x/day, watery, no blood , no mucus). The patient's symptoms have included no fatigue, no fever, no ear pain and no vomiting. The patient has been exposed to no sick contacts(No exposure to covid or flu) . Primary Care Review of Systems Objective Vital Signs 02/28/22 1052 Temp: 36.9 C (98.5 F) TempSrc: Temporal Weight: (!) 96 kg There is no height or weight on file to calculate BMI. Physical Exam Constitutional: She appears well. She is active. No distress. HENT: Head: Atraumatic. Sinus tenderness (frontal and maxillary) present. Ears: Right Ear: Tympanic membrane and external ear normal. Left Ear: Tympanic membrane and external ear normal. Nose: No nasal discharge. Mouth/Throat: Mucous membranes are moist. No pharynx erythema. Tonsils are 2+ on the right. Tonsils are 2+ on the left. No tonsillar exudate. Eyes: Conjunctivae are normal. Cardiovascular: Normal rate and regular rhythm. Heart murmur not heard. Pulmonary/Chest: Breath sounds normal. There is normal air entry. Lymphadenopathy: No right anterior and posterior cervical adenopathy present. No left anterior and posterior cervical adenopathy present. Neurological: She is alert. Normal [facility] Encounters Encounter Date Encounter Type Care Provider Facility Start: 02-04-2024 End: 02-04-2024 ambulatory Diony KAUFMAN [place] [place]: 12-18-2023 Telephone encounter Giuseppe Carcamo nery Work Phone: Podiatry Comment on above: Results Start: 12-18-2023 End: 12-18-2023 Subsequent hospital visit by physician Xr [facility] Zandra Sullivan Work Phone: Radiology Comment on above: Onychodystrophy [L60 .3] Start: 12-18-2023 End: 12-18-2023 Patient encounter procedure Giuseppe Mendez Work Phone: Podiatry Comment on above: Onychodystrophy (Rosa Elena raimundo Dx); Exostosis Start: 11-17-2023 End: 11-17-2023 ambulatory Savanna Tavarez [place] [place] Start: 09-24-2023 End: 09-24-2023 ambulatory PAUL MENESES Facility:[facility] Start: 09-24-2023 End: 09-24-2023 Patient encounter procedure Giuseppe Hoffmanpat Work Phone: Podiatry Comment on above: Open wound of toe, i nitial encounter (Primary Dx) Start: 09-19-2023 Telephone encounter Giuseppe Carcamo nery Work Phone: [place] Provider Adult Comment on above: Orders Patient Update Start: 09-10-2023 Telephone encounter Giuseppe Carcamo nery Work Phone: Podiatry Comment on above: Results Start: 09-06-2023 End: 09-06-2023 ambulatory PAUL MENESES Facility:[facility] Start: 09-06-2023 End: 09-06-2023 Patient encounter procedure Giuseppe Sky Work Phone: Podiatry Comment on above: Ingrowing toenail wi th infection (Primary Dx) Start: 08-18-2023 End: 08-18-2023 ambulatory Bailee KAUFMAN Facility:[facility] Procedures Date Procedure Procedure Detail Performing Clinician Start: 12-18-2023 Radex toe minimum 2 views Giuseppe Sky Work Phone: Start: 09-06-2023 Cul bact xcpt urine blood/stool aerobic isol Giuseppe Hoffmanpat Work Phone: Plan of Treatment Date Care Activity Detail Author Start: 07-24-2027 Urine microalbumin profile DTaP,Tdap,Td Vaccine (7 - Td or Tdap) [facility] Start: 10-22-2023 Depression Assessment Depression Assessment [facility] Start: 06-22-2023 Covid-19 Vaccine ( season) Covid-19 Vaccine ( season) [facility] Start: 06-22-2023 Influenza vaccination Influenza Vaccine (#1) [facility] Start: 2023 Chlamydia Screening (18-24) Chlamydia Screening (18-24) [facility] Start: 2023 GC (Gonorrhea) Screening (18-24) GC (Gonorrhea) Screening (18-24) [facility] Start: 2023 Hepatitis C Screening Hepatitis C Screening [facility] Start: 2023 Hepatitis C screening Hepatitis C Screening [facility] Start: 2023 HIV Screening HIV Screening [facility] Start: 2023 HIV screening HIV Screening [facility] Start: 2023 Screening for Chlamydia trachomatis Chlamydia Screening (18-24) [facility] Start: 10-22-2022 Depression Assessment Depression Assessment [facility] Start: 03-28-2022 HPV Vaccine (2 - 3-dose series) HPV Vaccine (2 - 3-dose series) [facility] Start: 03-28-2022 Meningococcal B Vaccine: Consider Based On Risk (2 of 2 - Risk Bexsero 2-dose series) Meningococcal B Vaccine: Consider Based On Risk (2 of 2 - Risk Bexsero 2-dose series) [facility] Start: 2019 Peds To Adult Transition Annual Assessment Peds To Adult Transition Annual Assessment [facility] Start: 2017 Peds To Adult Transition Initial Discussion Peds To Adult Transition Initial Discussion [facility] Bacteria identified in Wound by Culture ABSCESS AND WOUND CULTURE WITH GRAM STAIN Microbiology Routine Ingrowing toenail with infection 09/06/2023 11:57 AM EST [facility] Work Phone: [facility] c Immunizations Immunization Date Immunization Notes Care Provider Tiffani ashishalina 09-30-2009 influenza virus vacc ine, unspecified formulation Giuseppe Mendez Work Phone: [facility] Payers Date Payer Category Payer Self-pay 2022 Medicaid [place] [employer] [employer] [id number] 2022-Present [phone] [address] [place] [address] Medicaid [id number] 2022 Medicaid [id number] Unknown [id number] Unknown [id number] Unknown [id number] Social History Date Type Detail Facility Start: 01-18-2016 Tobacco smoking stat [facility] Never smoked tobacco [facility] Work Phone: History of tobacco use Passive smoker [facility] Work Phone: Start: 01-18-2016 Alcohol intake Not Asked Josie aviles [facility] Start: 2005 Sex Assigned At Not on file [facility] Start: 09-24-2023 End: 12-18-2023 Gender identity Not on file [facility] Start: 09-24-2023 End: 12-18-2023 Alcohol intake Lifetime non-drinker (finding) [facility] Start: 09-24-2023 End: 12-18-2023 History of Social function [facility] National Score (1-100), lower number is lower risk 57 [facility] Clinical Notes 09-06-2023 to 12-18-2023 Telephone Encounter - Thais Bearden LPN - 12/18/2023 2:32 PM ESTTelephone Encounter - Giuseppe Mendez - 12/18/2023 12:39 PM Gloria Hammer RT(R) - 12/18/2023 9:00 AM ESTPatient Instructions Note Date & Type Note Facility 12-18-2023 Miscellaneous Notes Patient notified of results and provider's instructions. Patient verbalizes understanding. Thais Bearden LPN Please call patient to inform her that she has no bone spur. She will need to keep the nails cut short or consider removal of toenail Giuseppe Mendez DPM documented in this encounter [facility] 12-18-2023 History of Presen t illness Narrative Radiology Service Progress Note PATIENT NAME: Regla Coats DATE OF SERVICE: December 18, 2023 TIME: 8:51 AM PATIENT IDENTITY VERIFICATION COMPLETED USING TWO (2) IDENTIFIERS: Name and Date of confirmed by patient verbally. FALL SCREENING: Has the patient had 2 falls in the last year or 1 fall with injury or currently using an Ambulatory Assistive Device (Walker, Cane, Wheelchair, Crutches, etc.)? No PATIENT GENDER DATA: Female. status: : No status: NO. PATIENT RELEVANT IMPLANT DATA REVIEWED: Yes PATIENT PRESENTS WITH AN IMPLANTABLE OR ATTACHED RELOCATION ASSOCIATE: No RADIOLOGY DEPARTMENT: General X-ray: Exam(s) Completed: Lower Extremity X-Ray(s): Toes, Bilateral Great toe PERIPHERAL IV DATA: Not applicable SIGNED BY: RT Sharon(R) December 18, 2023 8:51 AM documented in this encounter [facility] 12-18-2023 History of Presen t illness Narrative FOLLOW UP PODIATRIC OFFICE VISIT Chief Complaint: This 18 year old who presents for follow up:ingrowing toenail of b/l great toe Patient presents to clinic for follow-up evaluation of b/l hallux Had total nail avulsion performed in August 2023 for infection. Toenail is starting to return and she is experiencing some pain with any pressure from shoes . She denies any redness or drainage. PAIN EVALUATION No data found in the last 1 encounters. No results found for: HBA1C PCP: Paul Meneses MD No past medical history on file. No current outpatient medications on file. No current facility-administered medications for this visit. ALLERGIES No Known Allergies No past surgical history on file. Physical Exam: OBJECTIVE: Constitutional: Pt is a well developed 18 year old female who is alert, oriented, cooperative and in no apparent distress. Eyes: Following during examination. No redness or drainage. Respiratory: RR normal and nonlabored. Even breathing. No evidence of distress. Psychology: Patient is engaged during conversation. Normal affect and mood. Does not appear depressed or anxious. NVSI unchanged from previous visit. Dermatological: B/l hallux nail does appear to be growing back. No signs of infection There is hypertrophy of distal nail fold of b/l hallux Musculoskeletal/Orthopaedic: Patient has no pain to palpation of b/l feet ASSESSMENT: (L60.3) Onychodystrophy (primary encounter diagnosis) (M89.8X9) Exostosis PLAN: Discussed b/l hallux nail deformity. I think the largest issue is her hypertrophy of distal nail fold resulting in pressure from nail plate. Options include keeping the nail cut short, possibly looking to see if there is underlying exostosis vs total nail matrixectomy. Patient not sure about total nail matrixectomy at this time. She has elected to keep the nail cut short and will check xray looking for exostosis. No infection currently. Will monitor and keep nail cut short. Giuseppe Mendez DPM Patient presents with: Left Great Toe - Established Patient, Follow Up, Ingrown Toenail Right Great Toe - Established Patient, Follow Up, Ingrown Toenail Patient presents for bilateral big toenail check. Patient had bilateral hallux total nail avulsion done 09/06/23 and now the nails seem to be ingrowing again. Tenderness to medial borders of bilateral nails. No redness or swelling. documented in this encounter [facility] 09-24-2023 Note HNO ID: [id number] Author: Giuseppe Mendez Service: ? Author Type: Physician Type: Progress Notes Filed: 09/24/2023 11:53 AM Note Text: FOLLOW UP PODIATRIC OFFICE VISIT Chief Complaint: This 18 year old who presents for follow up:total nail removal of b/l hallux Patient presents to clinic for follow-up b/l great toenail removal Patient states that her toe was slightly red last week prompting her to call in for refill on the antibiotic The toes are improving Patient feels well PAIN EVALUATION 09/24/2023 1141 Pain Level: 4 Pain Location: Toe Description: Sore Duration Amount of Time: 2 Duration Units: Weeks Frequency: Intermittent Intervention/Comfort measure: Reposition;Relaxation;Medicatio n No results found for: HBA1C PCP: Paul Meneses MD No past medical history on file. Current Outpatient Medications Medication Sig amoxicillin-clavulanate potassium (AUGMENTIN) 875-125 mg per tablet Take 1 tablet by mouth every 12 hours for 7 days. No current facility-administered medications for this visit. ALLERGIES No Known Allergies No past surgical history on file. Physical Exam: OBJECTIVE: Constitutional: Pt is a well developed 18 year old female who is alert, oriented, cooperative and in no apparent distress. Eyes: Following during examination. No redness or drainage. Respiratory: RR normal and nonlabored. Even breathing. No evidence of distress. Psychology: Patient is engaged during conversation. Normal affect and mood. Does not appear depressed or anxious. NVSI unchanged from previous visit. Dermatological: B/l hallux nail bed appears to be healing without local signs of infection Musculoskeletal/Orthopaedic: Patient has no pain to palpation of b/l hallux ASSESSMENT: (S91.109A) Open wound of toe, initial encounter (primary encounter diagnosis) PLAN: B/l hallux nail plate appears to be healing without signs of infection Continue with local wound care until all healing has achieved Would make plans for chemical matrixectomy in future once nail has returned Discussed her concern of past infection. I seen no infection at this time. Wonder if the redness she was experiencing was from bandaide. Nevertheless, she is on augmentin which will cover both bacteria present in toe. Can complete the antibiotic refill. F/u prn Giuseppe Mendez DPM [facility] 09-24-2023 Note HNO ID: [id number] Author: Thais Bearden LPN Service: ? Author Type: LICENSED NURSE Type: Progress Notes Filed: 09/24/2023 11:53 AM Note Text: AMB ROOMING INTAKE FLOWSHEET DATA Pain Pain Level: 4 Pain Location: Toe Description: Sore Duration Amount of Time: 2 Duration Units: Weeks Frequency: Intermittent Intervention/Comfort measure: Reposition, Relaxation, Medication Patient presents with: Left Foot - Established Patient, Follow Up, Pain, Ingrown Toenail Right Foot - Established Patient, Follow Up, Ingrown Toenail Thais Bearden LPN [facility] 09-24-2023 Instructions Giuseppe Mendez - 09/24/2023 11:50 AM EST Your wound appears to be healing Can continue with local wound care until the toe is completely healed Could make arrangements for permanent procedure in future documented in this encounter [facility] 09-24-2023 History of Presen t illness Narrative FOLLOW UP PODIATRIC OFFICE VISIT Chief Complaint: This 18 year old who presents for follow up:total nail removal of b/l hallux Patient presents to clinic for follow-up b/l great toenail removal Patient states that her toe was slightly red last week prompting her to call in for refill on the antibiotic The toes are improving Patient feels well PAIN EVALUATION 09/24/2023 1141 Pain Level: 4 Pain Location: Toe Description: Sore Duration Amount of Time: 2 Duration Units: Weeks Frequency: Intermittent Intervention/Comfort measure: Reposition;Relaxation;Medicatio n No results found for: HBA1C PCP: Paul Meneses MD No past medical history on file. Current Outpatient Medications Medication Sig amoxicillin-clavulanate potassium (AUGMENTIN) 875-125 mg per tablet Take 1 tablet by mouth every 12 hours for 7 days. No current facility-administered medications for this visit. ALLERGIES No Known Allergies No past surgical history on file. Physical Exam: OBJECTIVE: Constitutional: Pt is a well developed 18 year old female who is alert, oriented, cooperative and in no apparent distress. Eyes: Following during examination. No redness or drainage. Respiratory: RR normal and nonlabored. Even breathing. No evidence of distress. Psychology: Patient is engaged during conversation. Normal affect and mood. Does not appear depressed or anxious. NVSI unchanged from previous visit. Dermatological: B/l hallux nail bed appears to be healing without local signs of infection Musculoskeletal/Orthopaedic: Patient has no pain to palpation of b/l hallux ASSESSMENT: (S91.109A) Open wound of toe, initial encounter (primary encounter diagnosis) PLAN: B/l hallux nail plate appears to be healing without signs of infection Continue with local wound care until all healing has achieved Would make plans for chemical matrixectomy in future once nail has returned Discussed her concern of past infection. I seen no infection at this time. Wonder if the redness she was experiencing was from bandaide. Nevertheless, she is on augmentin which will cover both bacteria present in toe. Can complete the antibiotic refill. F/u prn Giuseppe Mendez DPM AMB ROOMING INTAKE FLOWSHEET DATA Pain Pain Level: 4 Pain Location: Toe Description: Sore Duration Amount of Time: 2 Duration Units: Weeks Frequency: Intermittent Intervention/Comfort measure: Reposition, Relaxation, Medication Patient presents with: Left Foot - Established Patient, Follow Up, Pain, Ingrown Toenail Right Foot - Established Patient, Follow Up, Ingrown Toenail Thais Bearden LPN documented in this encounter [facility] 09-19-2023 Miscellaneous Notes Patient notified. Thais Bearden LPN Images from the original note were not included. Giuseppe Mendez MA, Laurie; [facility] 8 minutes ago (10:59 AM) Rx called in. If issues fail to improve, present to urgent care Giuseppe Mendez DPM 09/06 Total nail avulsion, bilateral hallux Pt completed Augmentin 09/13. Right great toe is still draining yellow/green drainage and still has some red streaking. She states that symptoms have worsened since being off of the antibiotic. Streaking is slightly worse than when she had the procedure. Not extending from toe. Please review and advise. Mahi Lincoln MA documented in this encounter [facility] 09-19-2023 Miscellaneous Notes I prescribed another week of augmentin. Have her continue with soaking and topical antibiotic. If condition fails to improve, present to urgent care Giuseppe Mendez DPM documented in this encounter [facility] 09-10-2023 Miscellaneous Notes Called and spoke to patient this morning regarding results. See telephone encounter from 09/09/2023 Please call patient: Wound culture did show staph and strep. You are on appropriate antibiotic. I want you to continue until you finish Giuseppe Mendez DPM documented in this encounter [facility] 09-06-2023 Note HNO ID: [id number] Author: Thais Bearden LPN Service: ? Author Type: LICENSED NURSE Type: Progress Notes Filed: 09/06/2023 12:33 PM Note Text: UNIVERSAL PROTOCOL / SAFETY CHECKLIST Procedure to be Performed: Total nail avulsion, bilateral hallux Sign In: A Moment of CARE was completed. Personnel directly involved with the procedure wore the appropriate PPE (Personal Protective Equipment). No special equipment needed. Patient/Surrogate Stated/Verified: PATIENT VERIFIED(optional for EMERGENT procedures): Patient name, Date of , Relevant allergies, and The intended procedure Time Out Communication: Intended patient and procedure match the source documents. Consent documented and matches the intended procedure. Relevant labs, photos, and/or imaging studies have been reviewed. Correct side/site marked and visible. Medications required for procedure verified. No fire risk assessment and interventions applicable. No implant(s) inserted. Sign Out: SIGN OUT (optional for EMERGENT procedures): All specimen containers correctly labeled. All instruments, equipment, possible retained foreign bodies accounted for. Post-procedure follow-up management communicated and Plan of Care Visit completed when applicable. Thais Bearden LPN [facility] 09-06-2023 Note HNO ID: [id number] Author: Giuseppe Mendez Service: ? Author Type: Physician Type: Progress Notes Filed: 09/06/2023 12:33 PM Note Text: Initial Podiatric Office Visit: Chief Complaint: This 18 year old female who presents with chief complaint:ingrowing toenail of b/l hallux HPI Patient presents to clinic for evaluation of b/l hallux Has ingrowing toenail x 1 week. Has history of ingrowing toenail and can usually cut them out herself She states the nails are red, swollen and draining She did have strep and was on antibiotic. That did help to some degree but she still has drainage. PAIN EVALUATION 09/06/2023 1037 Pain Level: 10 Pain Location: Toe Description: Throbbing;Sharp;Shooting Duration Amount of Time: 9 Duration Units: Days Frequency: Intermittent Intervention/Comfort measure: Reposition;Relaxation;Medicatio n No results found for: HBA1C PCP: Paul Meneses MD No past medical history on file. No current outpatient medications on file. No current facility-administered medications for this visit. ALLERGIES No Known Allergies No past surgical history on file. No family history on file. Social History Tobacco Use Smoking status: Passive Smoke Exposure - Never Smoker REVIEW OF SYSTEMS GENERAL: Negative for Malaise, significant weight loss, fever RESPIRATORY: Negative for cough, wheezing and shortness of breath CARDIOVASCULAR: Negative for chest pain, leg swelling and palpitations GI: Negative for abdominal discomfort, blood in stools or black stools and change in bowel habits : Negative for dysuria, frequency and incontinence MUSCULOSKELETAL: Negative for joint pain or swelling, back pain, and muscle pain. SKIN: Negative for lesions, rash, and itching. HEMATOLOGY/LYMPHOLOGY Negative for prolonged bleeding, bruising easily, and swollen nodes. ENDOCRINE: Negative for cold or heat intolerance, polyuria, polydipsia and goiter. NEURO: negative Physical Exam: Constitutional: Pt is a well developed 18 year old female who is alert, oriented and cooperative Eyes: Following during examination. No redness or drainage. Respiratory: RR normal and nonlabored. Even breathing. No evidence of distress or shortness of breath. Psychology: Patient is engaged during conversation. Normal affect and mood. Does not appear depressed or anxious during encounter. Vascular: Dorsalis pedis and posterior tibial pulses palpable as b/l Capillary Fill time < 5 seconds to digits 1-5 b/l Skin temperature warm to warm proximal to distal b/l Hair growth present to digits Neurological: intact light touch/epicritic sensation b/l intact protective sensation no significant neurological deficits Dermatological: B/l hallux medial and lateral nail border is ingrowing with pain, redness, swelling, drainage. The entire proximal medial, proximal lateral and proximal central nail fold is swollen with drainage b/l. There is hypergranular tissue present to medial border of b/l hallux. Webspaces clean and dry 1-4 b/l. Skin appears well hydrated and supple. good color, texture, turgor. No open lesions present. No callosities present. Musculoskeletal/Orthopaedic: Patient has pain to palpation of b/l hallux toenail Radiographs: n/a ASSESSMENT: (L60.0) Ingrowing toenail with infection (primary encounter diagnosis) PLAN: Discussed ingrowing toenail of b/l hallux. Both medial and lateral border is ingrowing and there is drainage to both medial and lateral nail fold. There is some drainage from central nail fold proximally there is redness present to both great toes that is circumferential to the entire hallux. Discussed options not limited to partial nail avulsion vs total nail avulsion. Given the severe infection present, I would plan on placing her on antibiotic combined with total nail avulsion. Patient consents to proceed with total nail avulsion of b/l hallux. Would plan for possible matrixectomy in future provided no infection present. Discussed risks of toenail procedure not limited to infection, pain, swelling, bleeding, painful scarring, recurrence, need for revised procedure. Patient consented to proceed. Patient was properly identified by name and procedure. The rightr hallux was then injected with 3 cc of 1% lidocaine plain. The toe was then prepped and draped in the usual aseptic technique. A digital tournicot was applied to the toe. The entire nail was then freed and removed. Careful inspection was performed to assure no remaining spicule present. Avulsion was performed. Wound culture performed. All nonviable tissue was debrided. Silver nitrate was used for hemostasis. Sterile dressing was then applied consisting of amerigel, guaze, james and coban. Tournicot was removed and hyperemic response was noted. Patient tolerated well. Patient will f/u in 2 weeks. Discussed risks of toenail procedure not limited to infection, pain, swelli (more content not included)... [facility] 09-06-2023 Note HNO ID: [id number] Author: Thais Bearden LPN Service: ? Author Type: LICENSED NURSE Type: Progress Notes Filed: 09/06/2023 12:33 PM Note Text: AMB ROOMING INTAKE FLOWSHEET DATA Risk Screening Do you have concerns about personal safety or safety in the home?: No Pain Pain Level: 10 Pain Location: Toe Description: Throbbing, Sharp, Shooting Duration Amount of Time: 9 Duration Units: Days Frequency: Intermittent Intervention/Comfort measure: Reposition, Relaxation, Medication Patient presents with: Left Great Toe - New, Ingrown Toenail, Pain, Swelling Right Great Toe - New, Ingrown Toenail, Pain, Swelling Patient present to office with bilateral hallux ingrown toenails. Patient states this has been infected for about 9 days. Patient was on antibotics for strep throat and completed medication last Sunday. Thais Bearden LPN [facility] 09-06-2023 History of Presen t illness Narrative UNIVERSAL PROTOCOL / SAFETY CHECKLIST Procedure to be Performed: Total nail avulsion, bilateral hallux Sign In: A Moment of CARE was completed. Personnel directly involved with the procedure wore the appropriate PPE (Personal Protective Equipment). No special equipment needed. Patient/Surrogate Stated/Verified: PATIENT VERIFIED(optional for EMERGENT procedures): Patient name, Date of , Relevant allergies, and The intended procedure Time Out Communication: Intended patient and procedure match the source documents. Consent documented and matches the intended procedure. Relevant labs, photos, and/or imaging studies have been reviewed. Correct side/site marked and visible. Medications required for procedure verified. No fire risk assessment and interventions applicable. No implant(s) inserted. Sign Out: SIGN OUT (optional for EMERGENT procedures): All specimen containers correctly labeled. All instruments, equipment, possible retained foreign bodies accounted for. Post-procedure follow-up management communicated and Plan of Care Visit completed when applicable. Thais Bearden LPN Initial Podiatric Office Visit: Chief Complaint: This 18 year old female who presents with chief complaint:ingrowing toenail of b/l hallux HPI Patient presents to clinic for evaluation of b/l hallux Has ingrowing toenail x 1 week. Has history of ingrowing toenail and can usually cut them out herself She states the nails are red, swollen and draining She did have strep and was on antibiotic. That did help to some degree but she still has drainage. PAIN EVALUATION 09/06/2023 1037 Pain Level: 10 Pain Location: Toe Description: Throbbing;Sharp;Shooting Duration Amount of Time: 9 Duration Units: Days Frequency: Intermittent Intervention/Comfort measure: Reposition;Relaxation;Medicatio n No results found for: HBA1C PCP: Paul Meneses MD No past medical history on file. No current outpatient medications on file. No current facility-administered medications for this visit. ALLERGIES No Known Allergies No past surgical history on file. No family history on file. Social History Tobacco Use Smoking status: Passive Smoke Exposure - Never Smoker REVIEW OF SYSTEMS GENERAL: Negative for Malaise, significant weight loss, fever RESPIRATORY: Negative for cough, wheezing and shortness of breath CARDIOVASCULAR: Negative for chest pain, leg swelling and palpitations GI: Negative for abdominal discomfort, blood in stools or black stools and change in bowel habits : Negative for dysuria, frequency and incontinence MUSCULOSKELETAL: Negative for joint pain or swelling, back pain, and muscle pain. SKIN: Negative for lesions, rash, and itching. HEMATOLOGY/LYMPHOLOGY Negative for prolonged bleeding, bruising easily, and swollen nodes. ENDOCRINE: Negative for cold or heat intolerance, polyuria, polydipsia and goiter. NEURO: negative Physical Exam: Constitutional: Pt is a well developed 18 year old female who is alert, oriented and cooperative Eyes: Following during examination. No redness or drainage. Respiratory: RR normal and nonlabored. Even breathing. No evidence of distress or shortness of breath. Psychology: Patient is engaged during conversation. Normal affect and mood. Does not appear depressed or anxious during encounter. Vascular: Dorsalis pedis and posterior tibial pulses palpable as b/l Capillary Fill time < 5 seconds to digits 1-5 b/l Skin temperature warm to warm proximal to distal b/l Hair growth present to digits Neurological: intact light touch/epicritic sensation b/l intact protective sensation no significant neurological deficits Dermatological: B/l hallux medial and lateral nail border is ingrowing with pain, redness, swelling, drainage. The entire proximal medial, proximal lateral and proximal central nail fold is swollen with drainage b/l. There is hypergranular tissue present to medial border of b/l hallux. Webspaces clean and dry 1-4 b/l. Skin appears well hydrated and supple. good color, texture, turgor. No open lesions present. No callosities present. Musculoskeletal/Orthopaedic: Patient has pain to palpation of b/l hallux toenail Radiographs: n/a ASSESSMENT: (L60.0) Ingrowing toenail with infection (primary encounter diagnosis) PLAN: Discussed ingrowing toenail of b/l hallux. Both medial and lateral border is ingrowing and there is drainage to both medial and lateral nail fold. There is some drainage from central nail fold proximally there is redness present to both great toes that is circumferential to the entire hallux. Discussed options not limited to partial nail avulsion vs total nail avulsion. Given the severe infection present, I would plan on placing her on antibiotic combined with total nail avulsion. Patient consents to proceed with total nail avulsion of b/l hallux. Would plan for possible matrixectomy in future provided no infection present. Discussed risks of toenail procedure not limited to infection, pain, swelling, bleeding, painful scarring, recurrence, need for revised procedure. Patient consented to proceed. Patient was properly identified by name and procedure. The rightr hallux was then injected with 3 cc of 1% lidocaine plain. The toe was then prepped and draped in the usual aseptic technique. A digital tournicot was applied to the toe. The entire nail was then freed and removed. Careful inspection was performed to assure no remaining spicule present. Avulsion was performed. Wound culture performed. All nonviable tissue was debrided. Silver nitrate was used for hemostasis. Sterile dressing was then applied consisting of amerigel, guaze, james and coban. Tournicot was removed and hyperemic response was noted. Patient tolerated well. Patient will f/u in 2 weeks. Discussed risks of toenail procedure not limited to infection, pain, swelling, bleeding, painful scarring, recurrence, need for revised procedure. Patient consented to proceed. Patient was properly identified by name and procedure. The left hallux was then injected with 3 cc of 1% lidocaine plain. The toe was then prepped and draped in the usual aseptic technique. A digital tournicot was applied to the toe. The entire nail was then freed and removed. Careful inspection was performed to assure no remaining spicule present. Avulsion was performed. Wound culture performed. All nonviable tissue was debrided. Silver nitrate was used for hemostasis. Sterile dressing was then applied consisting of amerigel, guaze, james and coban. Tournicot was removed and hyperemic response was noted. Patient tolerated well. Patient will f/u in 2 weeks. Giuseppe Mendez DPM Podiatry [facility] [address] [facility] [address] Dept: [phone] Dept AMB ROOMING INTAKE FLOWSHEET DATA Risk Screening Do you have concerns about personal safety or safety in the home?: No Pain Pain Level: 10 Pain Location: Toe Description: Throbbing, Sharp, Shooting Duration Amount of Time: 9 Duration Units: Days Frequency: Intermittent Intervention/Comfort measure: Reposition, Relaxation, Medication Patient presents with: Left Great Toe - New, Ingrown Toenail, Pain, Swelling Right Great Toe - New, Ingrown Toenail, Pain, Swelling Patient present to office with bilateral hallux ingrown toenails. Patient states this has been infected for about 9 days. Patient was on antibotics for strep throat and completed medication last Sunday. Thais Bearden LPN documented in this encounter [facility] 09-06-2023 Instructions Thais Bearden LPN - 09/06/2023 11:17 AM EST Post-Op Nail Instructions Minimize activity until the anesthesia wears off (about 2-8 hours). Increase activity to tolerance Remove bandage tomorrow Soak affected toe/foot in epsom salts for 15-20 minutes twice daily After soaking, apply antibiotic ointment (OTC Neosporin) to affected toe and re bandage OTC Ibuprofen if having pain, provided you have no allergies or intolerance to NSAIDS Mild drainage, redness, and blood is expected, but if you expeirence severe pain, increase in drainage, swelling, or red streaking please contact our office immediately Feel free to contact office as well if you have any questions/concerns [phone], ask for Podiatry Nurse documented in this encounter [facility] Evaluation note Diagnosis Ingrowing toenail with infection- Primary Ingrowing nail [facility] Open wound of toe, initial encounter- Primary [facility] Diagnosis Onychodystrophy- Primary Other specified disease of nail Exostosis Exostosis of unspecified site [facility] Onychodystrophy Other specified disease of nail Exostosis Exostosis of unspecified site [facility] Diagnostic Procedure Only (Routine) - Closed Specialty Diagnoses / Procedures Referred By Bonifacio ro Referred To Contact XR IMAGING Diagnoses Onychodystrophy Exostosis Procedures XR TOE AP/LAT/OBL LEFT RADEX TOE MINIMUM 2 VIEWS Giuseppe Mendez[address] [place] [address] [place] [address] Referral ID Status Reason Start Date Expiration Date V isits Requested Visits Authorized [id number] Closed Auto-Generate d Referral 12/18/2023 01/16/2025 1 1 * Diagnostic Procedure Only (Routine) - Closed Specialty Diagnoses / Procedures Referred By Contac t Referred To Contact XR IMAGING Diagnoses Onychodystrophy Exostosis Procedures XR TOE AP/LAT/OBL RIGHT RADEX TOE MINIMUM 2 VIEWS Giuseppe [address] [place] [address] [place] [address] Referral ID Status Reason Start Date Expiration Date V isits Requested Visits Authorized [id number] Closed Auto-Generate d Referral 12/18/2023 01/16/2025 1 1 [facility] for referral (narrative)* Diagnostic Procedure Only (Routine) - Closed Specialty Diagnoses / Procedures Referred By Contac t Referred To Contact XR IMAGING Diagnoses Onychodystrophy Exostosis Procedures XR TOE AP/LAT/OBL LEFT RADEX TOE MINIMUM 2 VIEWS Giuseppe Mendez [address] [place] [address] [place] [address] Referral ID Status Reason Start Date Expiration Date V isits Requested Visits Authorized [id number] Closed Auto-Generate d Referral 12/18/2023 01/16/2025 1 1 * Diagnostic Procedure Only (Routine) - Closed Specialty Diagnoses / Procedures Referred By Contac t Referred To Contact XR IMAGING Diagnoses Onychodystrophy Exostosis Procedures XR TOE AP/LAT/OBL RIGHT RADEX TOE MINIMUM 2 VIEWS Giuseppe Mendez [address] [place] [address] [place] [address] Referral ID Status Reason Start Date Expiration Date V isits Requested Visits Authorized [id number] Closed Auto-Generate d Referral 12/18/2023 01/16/2025 1 1 [place] [facility] for visit Narrative* Diagnostic Procedure Only (Routine) - Closed Specialty Diagnoses / Procedures Referred By Bonifacio ro Referred To Contact XR IMAGING Diagnoses Onychodystrophy Exostosis Procedures XR TOE AP/LAT/OBL LEFT RADEX TOE MINIMUM 2 VIEWS Giuseppe Mendez [address] [place] [address] [place] [id number] Referral ID Status Reason Start Date Expiration Date V isits Requested Visits Authorized [id number] Closed Auto-Generate d Referral 12/18/2023 01/16/2025 1 1 [facility] Summary Purpose Family History No Family History Records FoundNo Family History Records FoundNo Family History Records Found Advance Directives No Advanced Directives Records FoundNo Advanced Directives Records FoundNo Advanced Directives Records Found Additional Source Comments INFORMATION SOURCE (unrecogn ized section and content) DATE CREATED AUTHOR 03/21/[address] [facility] DATE CREATED AUTHOR AUTHOR'S ORGANIZ ATION 09/26/2023 [facility] DATE CREATED AUTHOR AUTHOR'S ORGANIZ ATION 05/13/2024 [facility] Source Comments (unrecognize d section and content) In the event this informatio n is protected by the Federal Confidentiality of Alcohol and Drug Abuse Patient Records regulations: The Federal rules restrict any use of the information to criminally investigate or prosecute any alcohol or drug abuse patient.[facility] the event this information is protected by the Federal Confidentiality of Alcohol and Drug Abuse Patient Records regulations: The Federal rules restrict any use of the information to criminally investigate or prosecute any alcohol or drug abuse patient.[facility] the event this information is protected by the Federal Confidentiality of Alcohol and Drug Abuse Patient Records regulations: The Federal rules restrict any use of the information to criminally investigate or prosecute any alcohol or drug abuse patient.[facility] the event this information is protected by the Federal Confidentiality of Alcohol and Drug Abuse Patient Records regulations: The Federal rules restrict any use of the information to criminally investigate or prosecute any alcohol or drug abuse patient.[facility] the event this information is protected by the Federal Confidentiality of Alcohol and Drug Abuse Patient Records regulations: The Federal rules restrict any use of the information to criminally investigate or prosecute any alcohol or drug abuse patient.[facility] the event this information is protected by the Federal Confidentiality of Alcohol and Drug Abuse Patient Records regulations: The Federal rules restrict any use of the information to criminally investigate or prosecute any alcohol or drug abuse patient.[facility] Center[facility] the event this information is protected by the Federal Confidentiality of Alcohol and Drug Abuse Patient Records regulations: The Federal rules restrict any use of the information to criminally investigate or prosecute any alcohol or drug abuse patient.[facility] Center[facility] the event this information is protected by the Federal Confidentiality of Alcohol and Drug Abuse Patient Records regulations: The Federal rules restrict any use of the information to criminally investigate or prosecute any alcohol or drug abuse patient.[facility] Reason for Visit (unrecogniz ed section and content) Reason Comments New Ingrown Toenail Pain Swelling Reason Comments Results Reason Comments Orders Reason Comments Patient Update Reason Comments Established Patient Follow Up Pain Ingrown Toenail Reason Comments Established Patient Follow Up Ingrown Toenail Care Teams (unrecognized sec tion and content) Clothes Shaker Relationship Specialty Start Date End Date Paul Meneses PCP - General 01/02/06 Clothes Shaker Relationship Specialty Start Date End Date Paul Meneses PCP - General 01/02/06 Clothes Shaker Relationship Specialty Start Date End Date Paul Meneses PCP - General 01/02/06 Clothes Shaker Relationship Specialty Start Date End Date Paul Meneses PCP - General 01/02/06 Clothes Shaker Relationship Specialty Start Date End Date Paul Meneses PCP - General 01/02/06 Clothes Shaker Relationship Specialty Start Date End Date Paul Meneses PCP - General 01/02/06 Clothes Shaker Relationship Specialty Start Date End Date Paul Meneses [facility] 01/02/06 FOR RECORDS PERTAINING TO PATIENTS WHO ARE OR HAVE BEEN ENROLLED IN A CHEMICAL DEPENDENCY/SUBSTANCEABUSE PROGRAM, SOME INFORMATION MAY BE OMITTED. This clinical summary was aggregated from multiple sources. Caution should be exercised in using it in the provision of clinical care. This summary normalizes information from multiple sources, and as a consequence, information in this document may materially change the coding, format and clinical context of patient data. In addition, data may be omitted in some cases. CLINICAL DECISIONS SHOULD BE BASED ON THE PRIMARY CLINICAL RECORDS. [facility] provides no warranty or guarantee of the accuracy or completeness of information in this document.
[2025-10-14 07:30] LABS: Troponin T High Sensitivity < 6 ng/L (<=14)
[2025-10-14 07:43] LABS: Anion Gap 13 (7-18); BUN 11 mg/dL (4-19); BUN/Creat Ratio 14.5 RATIO (10-20); Calcium,Total 8.7 mg/dL (7.6-11.0); Carbon Dioxide 19.6 mmol/L (20.0-29.0); Chloride 104 mmol/L (96-106); Estimated Creatinine Clearance 110.82 ml/min (50-250); Glucose 99 mg/dL (70-99); Potassium 3.8 mmol/L (3.5-5.1)
== END 2025-10-14 08:39 | disposition home or self-care (01) ==
PROVIDERS: Emergency Provider Emergency Medicine; PCP Pediatrics; Visit Provider Emergency Medicine
DX: J10.1 Influenza due to other identified influenza virus with other respiratory manifestations (principal); E86.0 Dehydration; R05.9 Cough, unspecified; R06.02 Shortness of breath; R00.1 Bradycardia, unspecified
CPT/HCPCS: 71046; 80048; 84484; 85025; 87631; 93005; 94640; 96360; 99284; A4216